=== PATIENT | male | born 2000 | race Asian ===

== ENCOUNTER 2024-05-05 03:56 | Emergency (ER) | payer OTHER ==
[~2024-05-05] VITALS: Ht 165.1 cm; Wt 49.9 kg
[2024-05-05] MEDS ORDERED: 0.9 % SODIUM CHLORIDE 1,000 ML IV STA (04:46)
[2024-05-05] MEDS ORDERED: FAMOtidine 10 MG/ML (4ML VIAL) IV PUSH STA (04:47)
[2024-05-05] MEDS ORDERED: PROMETHAZINE HCL 50 MG/ML AMPUL IM STA (04:47)
[2024-05-05 05:18] LABS: HEMATOCRIT 45.3 % (39.0-48.0); HEMOGLOBIN 15.1 g/dL (13-16.00); MEAN CELL VOLUME 95.9 fL (80.0-100.00); MEAN CORPUSCULAR HGB CONC 33.4 g/dl (32.0-36.0); PLATELET COUNT 341 K/uL (150-450); RED BLOOD COUNT 4.73 M/uL (4.00-6.00); RED CELL DISTRIBUTION WIDTH 14.1 % (11.5-14.5)
[2024-05-05 05:30] LABS: ALBUMIN 4.8 gm/dL (3.4-5.0); BILIRUBIN TOTAL 0.63 mg/dL (0.3-1.2); CALCIUM 9.2 mg/dL (8.5-10.1); CREATININE SERUM 0.91 mg/dL (0.70-1.30); GFR 104.18; GLOBULINA 2.9 G/DL (2.4-3.5); POTASSIUM 3.89 mEq/L (3.5-5.1); TOTAL PROTEIN 7.7 gm/dL (6.4-8.2)
== END 2024-05-05 08:47 | disposition home or self-care (01) ==
LOC: ER 03:56
DX: F19.10 Other psychoactive substance abuse, uncomplicated (principal)